=== PATIENT | male | born 1970 | race Caucasian/White ===

== ENCOUNTER 2017-07-25 03:28 | Inpatient (IN) | payer OTHER ==
--- NOTE | 2017-07-25 06:38 | Emergency Department Report ---
ED Chest Pain HPI - General Chief Complaint: Chest Pain Stated Complaint: CHEST PAIN Time Seen by Provider: 07/25/17 06:36 Source: patient, EMS, old records reviewed Mode of arrival: Ambulatory Limitations: No Limitations - History of Present Illness Initial Comments: Patient is providing apparently very little history to me. He states yesterday he had chest pain which involved the anterior. The axillary and shoulder area which she really couldn't describe. He stated that it occurred while he was standing and did not radiate. Alternatively the triage note states that he had chest pain for 3 days. He does not have any current chest pain. Patient has multiple risk factors for coronary artery disease to include type 2 diabetes hyperlipidemia hypertension. He did have an EKG done at [facility] which I have available. It does not indicate any evidence of acute ischemia. In any case, [facility] has sent this patient specifically for admission at our facility for nuclear perfusion study. The patient arrives expecting admission. MD Complaint: chest pain -: Gradual ( somewhat variable), unknown (somewhat variable history) Onset: during rest Severity: moderate Severity scale (0 -10): 0 Quality: other (could not describe and states never experienced this before) Consistency: now resolved Improves With: nothing Worsens With: nothing re: denies: nausea, vomting, diaphoresis, dyspnea, sense of impending doom Other Symptoms: denies: cough, fever, syncope Treatments Prior to Arrival: none - Related Data Allergies Allergy/AdvReac Type Severity Reaction Status Date / Time No Known Allergies Allergy Unverified 07/25/17 03:55 Heart Score - HEART Score History: Slightly suspicious EKG: Normal Age: < 45 Risk factors: > 3 risk factors or hx of atherosclerotic disease Troponin: < normal limit HEART Score: 2 - Critical Actions Critical Actions: 0-3 pts:0.9-1.7%risk of adverse cardiac event.Candidate for discharge ED Review of Systems ROS: Stated complaint: CHEST PAIN Other details as noted in HPI Constitutional: denies: chills, fever Eyes: denies: eye pain, eye discharge, vision change ENT: denies: ear pain, throat pain Respiratory: denies: cough, shortness of breath, wheezing Cardiovascular: as per HPI, chest pain. denies: palpitations Endocrine: no symptoms reported Gastrointestinal: denies: abdominal pain, nausea, diarrhea Genitourinary: denies: urgency, dysuria Musculoskeletal: denies: back pain, joint swelling, arthralgia Skin: denies: rash, lesions Neurological: denies: headache, weakness, paresthesias Psychiatric: denies: anxiety, depression Hematological/Lymphatic: denies: easy bleeding, easy bruising ED Past Medical Hx - Past Medical History Previous Medical History?: Yes Hx Hypertension: Yes Hx Diabetes: Yes - Social History Smoking Status: Former Smoker Substance Use Type: Alcohol, Prescribed ED Physical Exam - General Limitations: No Limitations General appearance: alert, in no apparent distress - Head Head exam: Present: atraumatic, normocephalic - Eye Eye exam: Present: normal appearance. Absent: scleral icterus - ENT ENT exam: Present: mucous membranes moist - Neck Neck exam: Present: normal inspection - Respiratory Respiratory exam: Present: normal lung sounds bilaterally. Absent: respiratory distress - Cardiovascular Cardiovascular Exam: Present: regular rate, normal rhythm. Absent: systolic murmur, diastolic murmur, rubs, gallop - GI/Abdominal GI/Abdominal exam: Present: soft, normal bowel sounds - Rectal Rectal exam: Present: deferred - Extremities Exam Extremities exam: Present: normal inspection - Back Exam Back exam: Present: normal inspection - Neurological Exam Neurological exam: Present: alert, oriented X3 - Psychiatric Psychiatric exam: Present: normal affect, normal mood - Skin Skin exam: Present: warm, dry, intact, normal color. Absent: rash ED Course Vital Signs 07/25/17 07/25/17 07/25/17 03:32 03:45 03:46 Temperature 98.4 F Pulse Rate 86 89 Respiratory 20 13 Rate Blood Pressure 183/106 183/107 O2 Sat by Pulse 74 L 98 100 Oximetry 07/25/17 07/25/17 07/25/17 03:57 04:46 05:22 Temperature 98.4 F Pulse Rate 97 H Respiratory 17 Rate Blood Pressure 183/107 183/107 O2 Sat by Pulse 100 100 Oximetry 07/25/17 07/25/17 07/25/17 05:30 05:46 06:00 Temperature Pulse Rate 84 81 82 Respiratory 18 15 14 Rate Blood Pressure 164/94 164/94 157/98 O2 Sat by Pulse 100 99 99 Oximetry 07/25/17 07/25/17 07/25/17 06:16 06:30 06:46 Temperature Pulse Rate 84 79 86 Respiratory 14 14 18 Rate Blood Pressure 157/98 157/98 157/98 O2 Sat by Pulse 100 99 100 Oximetry - Reevaluation(s) Reevaluation #1: Aspirin, Nitropaste. He spoke with Dr. Black. Additional lab workup ordered. We could not open the CD of the patient's chest x-ray. This had to be reordered. Patient admitted to telemetry. He is currently asymptomatic. 07/25/17 07:33 SHIRLEY score - Shirley Score Age > 65: (0) No Aspirin use within the Past 7 Days: (1) Yes 3 or more CAD Risk Factors: (1) Yes 2 or more Angina events in past 24 hrs: (0) No Known CAD with more than 50% Stenosis: (0) No Elevated Cardiac Markers: (0) No ST Deviation Greater than 0.5mm: (0) No SHIRLEY Score: 2 ED Medical Decision Making - EKG Data -: EKG Interpreted by Me EKG shows normal: sinus rhythm, axis, intervals, QRS complexes, ST-T waves Rate: normal - EKG Data Interpretation: nonspecific ST-T wave gonzalez Critical care attestation.: If time is entered above; I have spent that time in minutes in the direct care of this critically ill patient, excluding procedure time. ED Disposition Clinical Impression: Uncontrolled hypertension Chest pain Qualifiers: Chest pain type: unspecified Qualified Code(s): R07.9 - Chest pain, unspecified Type 2 diabetes mellitus Qualifiers: Diabetes mellitus complication status: without complication Diabetes mellitus residential insulin use: without computer terminal operator use Qualified Code(s): E11.9 - Type 2 diabetes mellitus without complications Disposition: OP ADMIT IP TO THIS HOSP Is pt being admited?: Yes Does the pt Need Aspirin: Yes Condition: Stable Instructions: Chest Pain (ED), Diabetes Mellitus Type 2 in Adults (ED), Hypertension (ED) Referrals: EMILIA HSU MD [Primary Care Provider] - 3-5 Days Time of Disposition: 07:35
[2017-07-25] MEDS ORDERED: ASPIRIN PO ONE (07:21)
--- NOTE | 2017-07-25 07:43 | XRay Report ---
FINAL REPORT EXAM: XR CHEST 1V AP HISTORY: hypertension TECHNIQUE: AP portable view(s) of the chest obtained. PRIORS: None. FINDINGS: No mediastinal shift. Cardiac silhouette is not enlarged. No pneumothorax, effusion, or focal pulmonary opacity identified. No acute skeletal findings. IMPRESSION: No acute pulmonary finding identified.
[2017-07-25 08:01] LABS: Basophils # (Auto) 0.2 K/mm3 (0.0-0.1); Basophils % (Auto) 2.6 % (0.0-1.8); Eosinophils # (Auto) 0.2 K/mm3 (0.0-0.4); Hematocrit 45.4 % (35.5-45.6); Lymphocytes # (Auto) 1.3 K/mm3 (1.2-5.4); Lymphocytes % (Auto) 15.9 % (13.4-35.0); Mean Corpuscular HGB Conc 33 % (32-34); Mean Corpuscular Hemoglobin 30 pg (28-32); Mean Corpuscular Volume 92 fl (84-94); Monocytes # (Auto) 0.4 K/mm3 (0.0-0.8); Monocytes % (Auto) 4.9 % (0.0-7.3); Platelet Count 280 K/mm3 (140-440); Red Blood Count 4.96 M/mm3 (3.65-5.03); Red Cell Distribution Width 15.3 % (13.2-15.2)
[2017-07-25 08:05] LABS: INR 0.89 (0.87-1.13)
[2017-07-25 08:07] LABS: Partial Thromboplastin Time 41.2 Sec. (24.2-36.6)
[2017-07-25] MEDS ORDERED: ASPIRIN ONE (08:15)
[2017-07-25] MEDS ORDERED: NITRO-BID 2% TP ONE (08:16)
[2017-07-25 08:18] LABS: Alanine Aminotransferase 17 units/L (7-56); Albumin 2.9 g/dL (3.9-5); BUN/Creatinine Ratio 8; Blood Urea Nitrogen 22 mg/dL (9-20); Calcium 8.9 mg/dL (8.4-10.2); Hemolysis Index 15
[2017-07-25 08:22] LABS: Bilirubin,Direct < 0.2 mg/dL (0-0.2)
[2017-07-25] MEDS: NITRO-BID 2% TP ONE ×2 (08:25→08:38)
[2017-07-25 08:28] LABS: Chol/HDL Ratio 5.42 %; HDL Cholesterol 40 mg/dL (40-59); LDL Cholesterol,Direct 145 mg/dL (50-130)
[2017-07-25] MEDS ORDERED: SODIUM CHLORIDE FLUSH SYRINGE 10 ML IV PRN (08:44)
[2017-07-25] MEDS ORDERED: APRESOLINE IV PRN (08:47)
[2017-07-25] MEDS ORDERED: PROAIR IH PRN (08:47)
[2017-07-25] MEDS ORDERED: D50W (25GM) Syringe IV PRN (08:50)
[2017-07-25] MEDS ORDERED: PROVENTIL IH PRN (08:56)
[2017-07-25] MEDS ORDERED: NACL 0.9% 1000 ML 1,000 ML IV SCH (09:00)
--- NOTE | 2017-07-25 09:36 | History and Physical Report ---
History of Present Illness Date of examination: 07/25/17 Date of admission: 07/25/17 08:07 Chief complaint: Chest pain History of present illness: The patient is a 47-year-old male with a history of diabetes mellitus, hyperlipidemia, CKD stage 4, diabetic neuropathy, hypertension, erectile dysfunction who was sent by primary physician at [facility] for a chest pain. The patient reports that about 2 days ago he had an anterior left upper chest wall pain which lasted a few seconds and resolved. But he states that he startled him and was concerned him. He reported that the preoperative attending intensity and has not recurred since then. He denies any aggravating or alleviating factors. He denies any past history of CAD. Initial laboratory done on the [facility] computer did reveal mildly elevated troponin of 0.10 but in the setting of a creatinine of 3.10. The patient presents today and denies any other complaints. EKG done at [facility] have been reviewed and shows normal sinus rhythm. No evidence of acute ischemia is noted. ROS Constitutional: No fever, fatigue or weight loss. Skin: No rash. Eyes: No recent vision problems or eye pain. ENT: No congestion, ear pain, or sore throat. Endocrine: No thyroid problems. Cardiovascular: One episode of chest pain. Respiratory: No cough, shortness of breath, congestion, or wheezing. Gastrointestinal: No abdominal pain, nausea, vomiting, or diarrhea. Genitourinary: No dysuria. Musculoskeletal: No joint swelling. Neurologic: No seizures. Hematologic: No unusual bruising or bleeding. Psychiatric: No psychiatric problems, hallucinations or depression. All other systems reviewed and otherwise negative. Past History Past Medical History: diabetes Past Surgical History: No surgical history Social history: lives with family, smoking (tobacco for 12 years ago), full code Family history: CAD Medications and Allergies Allergies Allergy/AdvReac Type Severity Reaction Status Date / Time No Known Allergies Allergy Unverified 07/25/17 03:55 Active Meds: Active Medications Albuterol (Proventil) 2.5 mg IH Q4HRT PRN PRN Reason: Shortness Of Breath Amitriptyline HCl (Elavil) 30 mg PO QHS [facility] Amlodipine Besylate (Norvasc) 10 mg PO QDAY [facility] Aspirin (Baby Aspirin) 81 mg PO QDAY [facility] Atorvastatin Calcium (Lipitor) 20 mg PO QHS [facility] Clopidogrel Bisulfate (Plavix) 75 mg PO QDAY [facility] Dextrose (D50w (25gm) Syringe) 50 ml IV PRN PRN PRN Reason: Hypoglycemia Hydralazine HCl (Apresoline) 10 mg IV Q4HR PRN PRN Reason: Hypertension Sodium Chloride (Nacl 0.9% 1000 Ml) 1,000 mls @ 75 mls/hr IV DIRECT [facility] Insulin Aspart (Novolog) 0 units SUB-Q ACHS [facility] PRN Reason: Protocol Sodium Chloride (Sodium Chloride Flush Syringe 10 Ml) 10 ml IV PRN PRN PRN Reason: LINE FLUSH Exam - Physical Exam Narrative exam: VITAL SIGNS: Reviewed. GENERAL: The patient appeared well nourished and normally developed. Vital signs as documented. HEAD: No signs of head trauma. EYES: Pupils are equal. Extraocular motions intact. EARS: Hearing grossly intact. MOUTH: Oropharynx is normal. NECK: No adenopathy, no JVD. CHEST: Chest with clear breath sounds bilaterally. No wheezes, rales, or rhonchi. CARDIAC: Regular rate and rhythm. S1 and S2, without murmurs, gallops, or rubs. VASCULAR: No Edema. Peripheral pulses normal and equal in all extremities. ABDOMEN: Soft, without detectable tenderness. No sign of distention. No rebound or guarding, and no masses palpated. Bowel Sounds normal. MUSCULOSKELETAL: Good range of motion of all major joints. Extremities without clubbing, cyanosis or edema. NEUROLOGIC EXAM: Alert and oriented x 3. No focal sensory or strength deficits. Speech normal. Follows commands. PSYCHIATRIC: Mood normal. SKIN: No rash or lesions. - Constitutional Vitals: Temp Pulse Resp BP Pulse Ox 98.4 F 91 H 18 158/96 99 07/25/17 03:57 07/25/17 08:00 07/25/17 08:00 07/25/17 08:00 07/25/17 08:00 Results - Labs CBC & Chem 7: 07/25/17 07:41 07/25/17 07:41 Labs: Laboratory Last Values WBC 8.2 K/mm3 (4.5-11.0) 07/25/17 07:41 RBC 4.96 M/mm3 (3.65-5.03) 07/25/17 07:41 Hgb 15.0 gm/dl (11.8-15.2) 07/25/17 07:41 Hct 45.4 % (35.5-45.6) 07/25/17 07:41 MCV 92 fl (84-94) 07/25/17 07:41 MCH 30 pg (28-32) 07/25/17 07:41 MCHC 33 % (32-34) 07/25/17 07:41 RDW 15.3 % (13.2-15.2) H 07/25/17 07:41 Plt Count 280 K/mm3 (140-440) 07/25/17 07:41 Lymph % (Auto) 15.9 % (13.4-35.0) 07/25/17 07:41 [place] % (Auto) 4.9 % (0.0-7.3) 07/25/17 07:41 Eos % (Auto) 3.0 % (0.0-4.3) 07/25/17 07:41 Baso % (Auto) 2.6 % (0.0-1.8) H 07/25/17 07:41 Lymph # 1.3 K/mm3 (1.2-5.4) 07/25/17 07:41 [place] # 0.4 K/mm3 (0.0-0.8) 07/25/17 07:41 Eos # 0.2 K/mm3 (0.0-0.4) 07/25/17 07:41 Baso # 0.2 K/mm3 (0.0-0.1) H 07/25/17 07:41 Seg Neutrophils % 73.6 % (40.0-70.0) H 07/25/17 07:41 Seg Neutrophils # 6.0 K/mm3 (1.8-7.7) 07/25/17 07:41 PT 12.5 Sec. (12.2-14.9) 07/25/17 07:41 INR 0.89 (0.87-1.13) 07/25/17 07:41 APTT 41.2 Sec. (24.2-36.6) H 07/25/17 07:41 Sodium 140 mmol/L (137-145) 07/25/17 07:41 Potassium 4.5 mmol/L (3.6-5.0) 07/25/17 07:41 Chloride 105.8 mmol/L (98-107) 07/25/17 07:41 Carbon Dioxide 21 mmol/L (22-30) L 07/25/17 07:41 Anion Gap 18 mmol/L 07/25/17 07:41 BUN 22 mg/dL (9-20) H 07/25/17 07:41 Creatinine 2.8 mg/dL (0.8-1.5) H 07/25/17 07:41 Estimated GFR 24 ml/min 07/25/17 07:41 BUN/Creatinine Ratio 8 % 07/25/17 07:41 Glucose 112 mg/dL (75-100) H 07/25/17 07:41 Calcium 8.9 mg/dL (8.4-10.2) 07/25/17 07:41 Total Bilirubin 0.50 mg/dL (0.1-1.2) 07/25/17 07:41 Direct Bilirubin < 0.2 mg/dL (0-0.2) 07/25/17 07:41 AST 18 units/L (5-40) 07/25/17 07:41 ALT 17 units/L (7-56) 07/25/17 07:41 Alkaline Phosphatase 90 units/L (35-129) 07/25/17 07:41 Troponin T 0.052 ng/mL (0.00-0.029) H 07/25/17 07:41 NT-Pro-B Natriuret Pep 242.9 pg/mL (0-450) 07/25/17 07:41 Total Protein 6.5 g/dL (6.3-8.2) 07/25/17 07:41 Albumin 2.9 g/dL (3.9-5) L 07/25/17 07:41 Albumin/Globulin Ratio 0.8 % 07/25/17 07:41 Triglycerides 163 mg/dL (2-149) H 07/25/17 07:41 Cholesterol 217 mg/dL (50-199) H 07/25/17 07:41 LDL Cholesterol Direct 145 mg/dL (50-130) H 07/25/17 07:41 HDL Cholesterol 40 mg/dL (40-59) 07/25/17 07:41 Cholesterol/HDL Ratio 5.42 % 07/25/17 07:41 - Imaging and Cardiology Chest x-ray: image reviewed (no acute pathology noted) Assessment and Plan Assessment and plan: The patient is a 47-year-old male with a history of diabetes mellitus, hyperlipidemia, CKD stage 4, diabetic neuropathy, hypertension, erectile dysfunction who was sent by primary physician at [facility] for a chest pain. The patient reports that about 2 days ago he had an anterior left upper chest wall pain which lasted a few seconds and resolved. But he states that he startled him and was concerned him. He reported that the preoperative attending intensity and has not recurred since then. He denies any aggravating or alleviating factors. He denies any past history of CAD. Initial laboratory done on the [facility] computer did reveal mildly elevated troponin of 0.10 but in the setting of a creatinine of 3.10. The patient presents today and denies any other complaints. EKG done at [facility] have been reviewed and shows normal sinus rhythm. No evidence of acute ischemia is noted. Atypical chest pain Diabetes mellitus Type 2 CA in the setting of CKD CKD Diabetic neuropathy HTN urgency Ed Hyperlipidemia Plan Admit to medicine Chest pain protocol ASA, STATIN, MORPHIN, OXYGEN Stress test this am Cardiology evaluation Accu check ac/hs Resume home meds DVT/GI prophy Plan of care discussed with patient and family in detail Advance Directives: Yes Plan of care discussed with patient/family: Yes
[2017-07-25] MEDS ORDERED: NORVASC PO SCH (10:00)
[2017-07-25] MEDS ORDERED: PLAVIX PO SCH (10:00)
[2017-07-25] MEDS ORDERED: LEXISCAN IV ONE ×2 (10:15→10:32)
[2017-07-25] MEDS ORDERED: NOVOLOG SUB-Q SCH (11:30)
--- NOTE | 2017-07-25 12:43 | Consultation ---
History of Present Illness Consult date: 07/25/17 Consult reason: chest pain History of present illness: 47 YO man with h/o htn, DM, Hyperlipidemia, amd CKD who had an episode of chest pain 2 days ago. He reports he had been opening his front door and noticed a sudden pain under his left shoulder with particular movement of his neck. There was no exertional component to his symptoms. He did not have any associated dyspnea, nausea, or diaphoresis. He was evaluated by his PCP and sent to ED for further evaluation. He has not had any recurrence of chest pain. Cardiac enzymes have revealed minimally elevated troponin level in the setting or CKD in a pattern not consistent with ACS. ECG reveals NSR and is otherwise unremarkable. Past History Past Medical History: diabetes, hypertension, hyperlipidemia, renal failure Past Surgical History: No surgical history Social history: lives with family, smoking (tobacco for 12 years ago), full code Family history: CAD Medications and Allergies Allergies Allergy/AdvReac Type Severity Reaction Status Date / Time No Known Allergies Allergy Unverified 07/25/17 03:55 Active Meds: Active Medications Albuterol (Proventil) 2.5 mg IH Q4HRT PRN PRN Reason: Shortness Of Breath Amitriptyline HCl (Elavil) 30 mg PO QHS [facility] Amlodipine Besylate (Norvasc) 10 mg PO QDAY [facility] Aspirin (Baby Aspirin) 81 mg PO QDAY [facility] Atorvastatin Calcium (Lipitor) 20 mg PO QHS [facility] Clopidogrel Bisulfate (Plavix) 75 mg PO QDAY [facility] Last Admin: 07/25/17 08:55 Dose: Not Given Dextrose (D50w (25gm) Syringe) 50 ml IV PRN PRN PRN Reason: Hypoglycemia Hydralazine HCl (Apresoline) 10 mg IV Q4HR PRN PRN Reason: Hypertension Sodium Chloride (Nacl 0.9% 1000 Ml) 1,000 mls @ 75 mls/hr IV DIRECT [facility] Insulin Aspart (Novolog) 0 units SUB-Q ACHS [facility] PRN Reason: Protocol Sodium Chloride (Sodium Chloride Flush Syringe 10 Ml) 10 ml IV PRN PRN PRN Reason: LINE FLUSH Review of Systems All systems: negative (per hpi) Physical Examination Vital Signs Pulse Ox 74 L 07/25/17 03:32 General appearance: no acute distress Neck: Positive: neck supple Cardiac: Positive: Reg Rate and Rhythm Lungs: Positive: clear to auscultation Abdomen: Positive: Soft, Active Bowel Sounds Results 07/25/17 07:41 07/25/17 Unknown Cardiac Enzymes 07/25/17 Range/Units 07:41 AST 18 (5-40) units/L Coagulation 07/25/17 Range/Units 07:41 PT 12.5 (12.2-14.9) Sec. INR 0.89 (0.87-1.13) APTT 41.2 H (24.2-36.6) Sec. Lipids 07/25/17 Range/Units 07:41 Triglycerides 163 H (2-149) mg/dL Cholesterol 217 H (50-199) mg/dL HDL Cholesterol 40 (40-59) mg/dL Cholesterol/HDL Ratio 5.42 % CBC 07/25/17 Range/Units 07:41 WBC 8.2 (4.5-11.0) K/mm3 RBC 4.96 (3.65-5.03) M/mm3 Hgb 15.0 (11.8-15.2) gm/dl Hct 45.4 (35.5-45.6) % Plt Count 280 (140-440) K/mm3 Lymph # 1.3 (1.2-5.4) K/mm3 [place] # 0.4 (0.0-0.8) K/mm3 Eos # 0.2 (0.0-0.4) K/mm3 Baso # 0.2 H (0.0-0.1) K/mm3 Comprehensive Metabolic Panel 07/25/17 07/25/17 Range/Units 07:41 Unknown Sodium 140 137 (137-145) mmol/L Potassium 4.5 5.0 (3.6-5.0) mmol/L Chloride 105.8 102.3 (98-107) mmol/L Carbon Dioxide 21 L 20 L (22-30) mmol/L BUN 22 H 22 H (9-20) mg/dL Creatinine 2.8 H 2.9 H (0.8-1.5) mg/dL Glucose 112 H 134 H (75-100) mg/dL Calcium 8.9 9.0 (8.4-10.2) mg/dL Direct Bilirubin < 0.2 (0-0.2) mg/dL AST 18 (5-40) units/L ALT 17 (7-56) units/L Alkaline Phosphatase 90 (35-129) units/L Total Protein 6.5 (6.3-8.2) g/dL Albumin 2.9 L (3.9-5) g/dL Assessment and Plan Atypical chest pain Nonspecific low level troponin elevation in setting of renal failure: Not consistent with ACS Htn DM HL CKD Recommend: Check MPI today Continue risk factor modification.
[2017-07-25 16:16] VITALS: BP 158/97
[2017-07-25] MEDS ORDERED: ELAVIL PO SCH (22:00)
[2017-07-26] MEDS ORDERED: BABY ASPIRIN PO SCH (10:00)
--- NOTE | 2017-07-28 23:25 | Treadmill Report ---
THALLIUM STRESS TEST LEFT VENTRICLE: Left ventricular chamber size is within normal spread. Perfusion study demonstrates a small fixed basal inferior defect. On the resting study, there is no significant reversibility. Gated analysis demonstrates normal left ventricular systolic function, ejection fraction 57%. CONCLUSION: Small fixed basal inferior defect, likely consistent with diaphragmatic attenuation artifact. Cannot exclude a small prior basal inferior infarct. No significant reversible ischemia is demonstrated on this study. Clinical correlation is recommended. [facility]# [id number] CA/NTS
== END 2017-07-25 15:52 | disposition home or self-care (01) | DRG 313 ==
LOC: ED 03:28 → 4A 08:07
PROVIDERS: ADMIT Internal Medicine; ATTEND Internal Medicine
DX: R07.89 Other chest pain (principal); N18.4 Chronic kidney disease, stage 4 (severe); E78.5 Hyperlipidemia, unspecified; E11.22 Type 2 diabetes mellitus with diabetic chronic kidney disease; I12.9 Hypertensive chronic kidney disease with stage 1 through stage 4 chronic kidney disease, or unspecified chronic kidney disease; I16.0 Hypertensive urgency; E11.40 Type 2 diabetes mellitus with diabetic neuropathy, unspecified; N52.9 Male erectile dysfunction, unspecified; Z82.49 Family history of ischemic heart disease and other diseases of the circulatory system; Z87.891 Personal history of nicotine dependence
CPT/HCPCS: 36415; 71045; 78452; 80048; 80061; 80074; 82962; 83880; 84484; 85025; 85610; 85730; 93005; 93010; 93017; 99285; A9502; J2785